=== PATIENT | female | born 1955 | race Two or more races ===

== ENCOUNTER 2022-01-04 11:08 | Outpatient (CLI) | payer MEDICARE ==
[2022-01-04 12:20] LABS: CALCIUM, SERUM 9.4 mg/dL (8.5-10.1); CREATININE 0.9 mg/dL (0.6-1.3); POTASSIUM 4.1 mmol/L (3.5-5.1)
== END 2022-01-04 23:59 | disposition home or self-care (01) ==
LOC: LAB 11:08
PROVIDERS: ATTEND Internal Medicine Interventional Cardiology
DX: I10 Essential (primary) hypertension (principal)
CPT/HCPCS: 36415; 80048-TC